=== PATIENT | male | born 1960 | race Caucasian/White ===

== ENCOUNTER 2018-04-10 15:32 | Emergency (ER) | payer OTHER | END 2018-04-10 17:40 | disposition home or self-care (01) | LOC: FTE 15:32 | DX: L03.317 Cellulitis of buttock (principal); I10 Essential (primary) hypertension; F17.210 Nicotine dependence, cigarettes, uncomplicated; Z79.82 Long term (current) use of aspirin; Z98.61 Coronary angioplasty status | CPT/HCPCS: 99283 ==

== ENCOUNTER 2018-04-15 11:06 | Emergency (ER) | payer OTHER | END 2018-04-15 12:49 | disposition left against medical advice (07) | LOC: FTE 11:06 | DX: K61.0 Anal abscess (principal); I10 Essential (primary) hypertension; F17.210 Nicotine dependence, cigarettes, uncomplicated; Z79.82 Long term (current) use of aspirin; Z98.61 Coronary angioplasty status | CPT/HCPCS: 99283; Z7502 ==

== ENCOUNTER 2018-04-16 16:21 | Emergency (ER) | payer OTHER | END 2018-04-16 18:28 | disposition home or self-care (01) | LOC: FTE 16:21 | DX: K61.0 Anal abscess (principal); I10 Essential (primary) hypertension; F17.210 Nicotine dependence, cigarettes, uncomplicated; Z79.82 Long term (current) use of aspirin; Z98.61 Coronary angioplasty status | CPT/HCPCS: 99283; Z7502 ==